=== PATIENT | female | born 1990 | race American Indian/Alaskan Native ===

== ENCOUNTER 2020-06-13 13:15 | Emergency (ER) | payer OTHER ==
[2020-06-13 14:11] VITALS: BP 137/91
[2020-06-13] MEDS ORDERED: DIPHtheria,PERTUSSIS(ACELL),TETANUS VACCINE/PF 0.5 ML VIAL IM ONE (14:11)
--- NOTE | 2020-06-13 14:15 | Emergency Department Report ---
ED General Adult HPI - General Stated complaint: FALL Time Seen by Provider: 06/13/20 14:10 - History of Present Illness Initial comments: 30-year-old -[place] female patient presents with complaints of right leg wound. Patient states she fell scraping her leg last night around 10 PM. She rates her pain as a 6/10 in severity and states she is unsure of her last tetanus vaccine. She denies any fever/chills or sweats, bony pain, numbness/tingling/weakness in her leg, or purulent drainage from wound. - Related Data Previous Rx's Medication Instructions Recorded Last Taken Type Fluconazole (Nf) [Diflucan TAB] 150 mg PO ONCE PRN 1 Days #1 tablet 06/13/20 Unknown Rx Ibuprofen [Motrin 800 MG tab] 800 mg PO Q8HR PRN #15 tablet 06/13/20 Unknown Rx Mupirocin [Bactroban 2% OINT] 1 applic TP TID 10 Days #1 tube 06/13/20 Unknown Rx cephALEXin [Keflex] 500 mg PO Q8HR 7 Days #21 cap 06/13/20 Unknown Rx Allergies Allergy/AdvReac Type Severity Reaction Status Date / Time No Known Allergies Allergy Unverified 06/13/20 14:11 ED Review of Systems ROS: Stated complaint: FALL Other details as noted in HPI Constitutional: denies: chills, fever, malaise Musculoskeletal: denies: joint swelling, arthralgia Skin: as per HPI. denies: rash, change in color Neurological: denies: numbness, paresthesias ED Past Medical Hx - Medications Home Medications: Home Medications Medication Instructions Recorded Confirmed Last Taken Type Fluconazole (Nf) [Diflucan TAB] 150 mg PO ONCE PRN 1 Days #1 tablet 06/13/20 Unknown Rx Ibuprofen [Motrin 800 MG tab] 800 mg PO Q8HR PRN #15 tablet 06/13/20 Unknown Rx Mupirocin [Bactroban 2% OINT] 1 applic TP TID 10 Days #1 tube 06/13/20 Unknown Rx cephALEXin [Keflex] 500 mg PO Q8HR 7 Days #21 cap 06/13/20 Unknown Rx ED Physical Exam - General General appearance: alert, in no apparent distress - Head Head exam: Present: atraumatic, normocephalic - Eye Eye exam: Absent: scleral icterus - Neck Neck exam: Present: normal inspection - Respiratory Respiratory exam: Absent: respiratory distress - Cardiovascular Cardiovascular Exam: Present: regular rate (86 bpm) - Expanded Lower Extremity Exam Right Lower Leg exam: Present: full ROM, tenderness (Noted over wound, no bony te nderness noted), laceration (Linear abrasion and 1 cm shallow wound noted to doll without active bleeding, surrounding erythema, or purulent drainage). Absent: swelling Ankle exam: Present: full ROM Foot/Toe exam: Present: normal inspection Gait: Positive: observed and normal - Back Exam Back exam: Present: full ROM - Neurological Exam Neurological exam: Present: alert, oriented X3 - Psychiatric Psychiatric exam: Present: normal affect, normal mood - Skin Skin exam: Present: warm, dry, normal color. Absent: rash, ecchymosis ED Course Vital Signs 06/13/20 14:08 Temperature 98.5 F Pulse Rate 103 H Respiratory 16 Rate Blood Pressure 137/91 O2 Sat by Pulse 100 Oximetry ED Medical Decision Making - Medical Decision Making 30-year-old -[place] female patient presents with complaints of right leg wound. Patient states she fell scraping her leg last night around 10 PM. She rates her pain as a 6/10 in severity and states she is unsure of her last tetanus vaccine. She denies any fever/chills or sweats, bony pain, numbness/tingling/weakness in her leg, or purulent drainage from wound. Granulation tissue noted on exam, wound is outside of suture window. Bacitracin and wound dressing placed. Will treat with Keflex and mupirocin for prophylactic wound infection treatment. Discussed wound care and signs symptoms of infection that should prompt immediate return to the emergency department in detail patient verbalized understanding. She is well-appearing and stable for discharge home. Patient follow-up primary care in 3 days. Critical care attestation.: If time is entered above; I have spent that time in minutes in the direct care of this critically ill patient, excluding procedure time. ED Disposition Clinical Impression: Leg wound, right Disposition: [id number] TO HOME OR SELFCARE Is pt being admited?: No Condition: Stable Instructions: Wound Care, Adult Prescriptions: Mupirocin [Bactroban 2% OINT] 1 applic TP TID 10 Days #1 tube Fluconazole (Nf) [Diflucan TAB] 150 mg PO ONCE PRN 1 Days #1 tablet PRN Reason: yeast infection cephALEXin [Keflex] 500 mg PO Q8HR 7 Days #21 cap Ibuprofen [Motrin 800 MG tab] 800 mg PO Q8HR PRN #15 tablet PRN Reason: pain Referrals: [facility] [Provider Group] - 3-5 Days
[2020-06-13] MEDS ORDERED: NEOMY 3.5 MG/BACIT 400 UNITS/POLY B 5000 UNITS/GM OINT PACKET TP STA (14:19)
== END 2020-06-13 15:04 | disposition home or self-care (01) ==
LOC: ED 13:15
DX: S80.921A Unspecified superficial injury of right lower leg, initial encounter (principal); Z79.899 Other long term (current) drug therapy; W19.XXXA Unspecified fall, initial encounter; Y93.89 Activity, other specified; Y92.89 Other specified places as the place of occurrence of the external cause; Y99.8 Other external cause status
CPT/HCPCS: 99282